=== PATIENT | female | born 1965 | race Two or more races ===

== ENCOUNTER 2017-01-21 10:32 | Emergency (ER) | payer MEDICAID, OTHER ==
[~2017-01-21] VITALS: Ht 167.6 cm; Wt 64.0 kg
[2017-01-21] MEDS ORDERED: IBUP-1509 PO (10:44)
[2017-01-21] MEDS ORDERED: LIDOCAINE HCL 1% 20ML VIAL (Pyxis) INJ MC ONE (11:15)
[2017-01-21] MEDS ORDERED: BACITRACIN ZINC OINT UDPKT TOP ONE (11:15)
[2017-01-21 11:44] VITALS: BP 109/57
== END 2017-01-21 13:04 | disposition home or self-care (01) ==
LOC: ER 11:05
DX: S91.311A Laceration without foreign body, right foot, initial encounter (principal); S91.111A Laceration without foreign body of right great toe without damage to nail, initial encounter; W22.09XA Striking against other stationary object, initial encounter; Y93.89 Activity, other specified; Y92.89 Other specified places as the place of occurrence of the external cause; I10 Essential (primary) hypertension; Z86.59 Personal history of other mental and behavioral disorders
CPT/HCPCS: 12002; 99284; J3490; X7700; Z7610

== ENCOUNTER 2017-01-28 22:39 | Inpatient (IN) | payer OTHER ==
[~2017-01-28] VITALS: Ht 167.6 cm; Wt 52.2 kg
[~2017-01-28 22:39] MED LIST: IBUP-2028 PO
[2017-01-29] VITALS (9 sets, daily range): BP systolic 86–99; BP diastolic 45–61
[2017-01-29 05:44] LABS: BASOPHILS % 2.6 % (0.0-2.0); EOSINOPHILS % 4.2 % (0.0-5.0); HEMATOCRIT. 21.8 % (36.0-48.0); HEMOGLOBIN. 7.2 g/dL (12.0-16.0); LYMPHOCYTES % 24.8 % (20.0-50.0); MEAN CORPUSCULAR HEMOGLOBIN 32.8 pg (28.0-32.0); MEAN CORPUSCULAR VOLUME 99.3 fL (81.0-99.0); MEAN PLATELET VOLUME 7.6 fl (7.4-10.4); MONOCYTES % 11.9 % (2.0-8.0); NEUTROPHILS % 56.5 % (40.0-76.0); PLATELET 159 x1000/uL (130-400); RED CELL DISTRIBUTION WIDTH 19.8 % (11.6-14.6)
[2017-01-29 05:53] LABS: INR 1.9; PROTHROMBIN TIME 19.4 sec (9.4-11.6)
[2017-01-29 06:01] LABS: CARBON DIOXIDE 28 mEq/L (21-32); CHLORIDE 105 mEq/L (98-107)
[2017-01-29] MEDS ORDERED: FAMOTIDINE 20MG TABLET PO ONE (06:45)
[2017-01-29] MEDS ORDERED: TRAMADOL 50MG TABLET PO ONE (06:45)
[2017-01-29] MEDS ORDERED: MORPHINE SULFATE 2 MG/ML CPJ (NOT FOR IM USE) IV ONE (07:15)
[2017-01-29] MEDS ORDERED: FAMOTIDINE 20MG/2ML VIAL IV ONE (07:15)
[2017-01-29] MEDS ORDERED: KETOROLAC 30MG/ML VIAL IV ONE (07:30)
[2017-01-29 07:38] LABS: CLARITY URINE CLOUDY (CLEAR); COLOR URINE DARK YELLOW (YELLOW); GLUCOSE URINE NEGATIVE (NEGATIVE); KETONES URINE NEGATIVE (NEGATIVE); LEUKOCYTE ESTERASE URINE 1+ (NEGATIVE); NITRITE URINE NEGATIVE (NEGATIVE); OCCULT BLOOD URINE NEGATIVE (NEGATIVE); PROTEIN URINE NEGATIVE (NEGATIVE); SPECIFIC GRAVITY URINE 1.021 (1.005-1.030)
[2017-01-29] MEDS ORDERED: FERR-63 PO (11:48)
[2017-01-29] MEDS ORDERED: SERT25TA74 PO (11:48)
[2017-01-29] MEDS ORDERED: PANTOPRAZOLE SODIUM 40 MG/VIAL IV SCH (12:15)
[2017-01-29] MEDS ORDERED: ONDANSETRON HCL 4MG/2ML VIAL IV PRN (14:15)
[2017-01-29] MEDS ORDERED: IPRATROPIUM/ALBUTEROL 0.5-3(2.5)MG/3ML NEB INH PRN (14:15)
[2017-01-29] MEDS ORDERED: FENTANYL CITRATE/PF 50MCG/ML 2ML VIAL ONE (16:06)
[2017-01-29] MEDS ORDERED: MIDAZOLAM HCL 5 MG/5 ML VIAL ONE (16:07)
[2017-01-29] MEDS ORDERED: OMEPRAZOLE 20MG CAPSULE EXTENDED RELEASE PO NR (17:30)
[2017-01-29 20:24] LABS: HEMOGLOBIN 6.4 g/dL (12.0-16.0)
[2017-01-29 20:25] LABS: HEMATOCRIT 19.2 % (36.0-48.0)
[2017-01-29 22:26] LABS: *AMPHETAMINES SCREEN URINE NEGATIVE (NEGATIVE); *BARBITURATES SCREEN URINE NEGATIVE (NEGATIVE); *COCAINE SCREEN URINE NEGATIVE (NEGATIVE); CANNABINOID URINE SCREEN NEGATIVE (NEGATIVE); METHADONE URINE SCREEN NEGATIVE (NEGATIVE); OPIATES URINE SCREEN NEGATIVE (NEGATIVE); PHENCYCLIDINE URINE SCREEN NEGATIVE (NEGATIVE)
[2017-01-29 22:40] LABS: *BENZODIAZEPINES SCREEN URINE PRESUMTIVE POSITIVE (NEGATIVE)
[2017-01-29 23:57] LABS: CREATINE KINASE 64 IU/L (26-192); CREATINE KINASE MB FRACTION 0.7 ng/mL (0.5-3.6); TROPONIN I < 0.02 ng/mL (0.00-0.04)
[2017-01-30] VITALS (13 sets, daily range): BP systolic 92–117; BP diastolic 51–67
[2017-01-30] MEDS: OMEPRAZOLE 20MG CAPSULE EXTENDED RELEASE PO SCH (05:45)
[2017-01-30 06:58] LABS: AMMONIA 105 uMol/L (<32)
[2017-01-30 07:04] LABS: FERRITIN 88 ng/mL (10-291)
[2017-01-30 07:09] LABS: HEPATITIS B SURFACE ANTIGEN NEGATIVE
[2017-01-30 07:26] LABS: HEMATOCRIT 26.4 % (36.0-48.0); HEMOGLOBIN 8.9 g/dL (12.0-16.0)
[2017-01-30 07:37] LABS: HEPATITIS B CORE AB IGM NEGATIVE
[2017-01-30 07:39] LABS: HEPATITIS A AB IGM NEGATIVE (NEGATIVE)
[2017-01-30 09:51] LABS: AMYLASE 38 IU/L (25-115); CREATINE KINASE 68 IU/L (26-192); CREATINE KINASE MB FRACTION 0.7 ng/mL (0.5-3.6); PHOSPHORUS 4.3 mg/dL (2.5-4.9); TOTAL IRON BINDING CAPACITY 163 ug/dL (250-450); TROPONIN I < 0.02 ng/mL (0.00-0.04)
[2017-01-30] MEDS ORDERED: MORPHINE SULFATE 2 MG/ML CPJ (NOT FOR IM USE) IV PRN (17:15)
[2017-01-30] MEDS ORDERED: IBUPROFEN 800MG TABLET PO PRN (18:00)
[2017-01-30] MEDS ORDERED: LACTULOSE 20G/30ML UDC PO SCH ×2 (19:00→19:15)
[2017-01-31] VITALS (7 sets, daily range): BP systolic 104–118; BP diastolic 60–68
[2017-01-31] MEDS: OMEPRAZOLE 20MG CAPSULE EXTENDED RELEASE PO SCH (06:13)
[2017-01-31] MEDS ORDERED: SIMETHICONE 40 MG/0.6 ML 30ML ONE (09:51)
[2017-01-31] MEDS ORDERED: SODIUM CHLORIDE 0.9% 10ML VIAL ONE (09:51)
== END 2017-01-31 21:20 | disposition short-term general hospital (02) | DRG 241 ==
LOC: ER 23:52 → 8WST 01-29 10:03 → EDBEDREQ 01-29 10:06 → ENRESERV 01-29 10:35
PROVIDERS: ADMIT Internal Medicine; ATTEND Internal Medicine
PROC: 30233N1 Transfusion of Nonautologous Red Blood Cells into Peripheral Vein, Percutaneous Approach (ICD-10-PCS; 2017-01-29)
PROC: 0DB68ZX Excision of Stomach, Via Natural or Artificial Opening Endoscopic, Diagnostic (ICD-10-PCS; principal; 2017-01-29 16:00)
DX: K25.4 Chronic or unspecified gastric ulcer with hemorrhage (principal); E43 Unspecified severe protein-calorie malnutrition; J90 Pleural effusion, not elsewhere classified; R18.8 Other ascites; K76.6 Portal hypertension; K29.60 Other gastritis without bleeding; R16.1 Splenomegaly, not elsewhere classified; K74.60 Unspecified cirrhosis of liver; I86.4 Gastric varices; K57.90 Diverticulosis of intestine, part unspecified, without perforation or abscess without bleeding; K80.20 Calculus of gallbladder without cholecystitis without obstruction; N39.0 Urinary tract infection, site not specified; D50.9 Iron deficiency anemia, unspecified; K31.89 Other diseases of stomach and duodenum
CPT/HCPCS: 36415; 74176; 76705; 78227; 80053; 80076; 80305; 81001; 81025; 82140; 82150; 82270; 82550; 82553; 82728; 83540; 83550; 83690; 83735; 84100; 84443; 84484; 85014; 85018; 85025; 85610; 86677; 86705; 86709; 86803; 86850; 86900; 86920; 87086; 87340; 88305; 88312; 88313; 96374; 96375; 99285; A4216; A9537; C1893; C9113; J1885; J2250; J2270; J3010; J3490; J7050; P9016

== ENCOUNTER 2017-03-12 09:00 | Emergency (ER) | payer OTHER ==
[~2017-03-12] VITALS: Ht 165.1 cm; Wt 60.0 kg
[~2017-03-12 09:00] MED LIST changes: +FERR-63 PO; +SERT25TA74 PO
[2017-03-12] MEDS ORDERED: ACETAMINOPHEN 325MG TABLET PO ONE (11:45)
[2017-03-12 12:56] VITALS: BP 131/70
== END 2017-03-12 13:10 | disposition home or self-care (01) ==
LOC: ER 09:51
DX: S90.822A Blister (nonthermal), left foot, initial encounter (principal); M19.90 Unspecified osteoarthritis, unspecified site; F41.9 Anxiety disorder, unspecified; X58.XXXA Exposure to other specified factors, initial encounter; Y93.89 Activity, other specified; Y92.89 Other specified places as the place of occurrence of the external cause
CPT/HCPCS: 99284; Z7610

== ENCOUNTER 2018-05-16 12:45 | Inpatient (IN) | payer MEDICAID, OTHER ==
[~2018-05-16] VITALS: Ht 167.6 cm; Wt 53.1 kg
[2018-05-16] MEDS ORDERED: PHEN-910 PO (13:14)
[2018-05-16] MEDS ORDERED: POTA10CA42 PO (13:15)
[2018-05-16] MEDS ORDERED: SODIUM CHLORIDE 0.9% 1,000 ML IV ONE (13:30)
[2018-05-16 15:26] LABS: BASOPHILS % 1.2 % (0.0-2.0); EOSINOPHILS % 4.5 % (0.0-5.0); HEMATOCRIT. 31.8 % (36.0-48.0); HEMOGLOBIN. 10.7 g/dL (12.0-16.0); LYMPHOCYTES % 20.6 % (20.0-50.0); MEAN CORPUSCULAR HEMOGLOBIN 33.5 pg (28.0-32.0); MEAN CORPUSCULAR VOLUME 99.6 fL (81.0-99.0); MEAN PLATELET VOLUME 9.4 fl (7.4-10.4); MONOCYTES % 11.5 % (2.0-8.0); NEUTROPHILS % 62.2 % (40.0-76.0); PLATELET 56 x1000/uL (130-400); RED CELL DISTRIBUTION WIDTH 16.4 % (11.6-14.6)
[2018-05-16 15:31] LABS: CHLORIDE 104 mEq/L (98-107)
[2018-05-16 15:32] LABS: INR 2.2; PROTHROMBIN TIME 21.8 sec (9.1-11.1)
[2018-05-16 15:35] LABS: ETHANOL BLOOD < 10 mg/dL
[2018-05-16] MEDS ORDERED: LACTULOSE 20G/30ML UDC PO NR (16:00)
[2018-05-16] MEDS ORDERED: ACETAMINOPHEN 325MG TABLET PO PRN (16:15)
[2018-05-16] MEDS ORDERED: ONDANSETRON HCL 4MG/2ML INJ IV PRN (16:15)
[2018-05-16] MEDS ORDERED: IPRATROPIUM/ALBUTEROL 0.5-3(2.5)MG/3ML NEB INH PRN (16:15)
[2018-05-16] MEDS ORDERED: LORAZEPAM 2MG/ML CPJ IV PRN (16:15)
[2018-05-16] MEDS ORDERED: CLONIDINE 0.1MG TABLET PO PRN (16:15)
[2018-05-16] MEDS ORDERED: MAGNESIUM/ALUMINUM HYDROXIDE/SIMETHICONE 30ML UDC PO PRN (16:15)
[2018-05-16 17:11] LABS: CLARITY URINE CLEAR (CLEAR); COLOR URINE DARK YELLOW (YELLOW); KETONES URINE TRACE (NEGATIVE); LEUKOCYTE ESTERASE URINE 1+ (NEGATIVE); NITRITE URINE NEGATIVE (NEGATIVE); OCCULT BLOOD URINE NEGATIVE (NEGATIVE); PH URINE 6.5 (4.5-8.0); PROTEIN URINE NEGATIVE (NEGATIVE); SPECIFIC GRAVITY URINE 1.017 (1.005-1.030)
[2018-05-16 17:25] LABS: *AMPHETAMINES SCREEN URINE NEGATIVE (NEGATIVE); *BARBITURATES SCREEN URINE NEGATIVE (NEGATIVE); *BENZODIAZEPINES SCREEN URINE NEGATIVE (NEGATIVE)
[2018-05-16 17:26] LABS: *COCAINE SCREEN URINE NEGATIVE (NEGATIVE); CANNABINOID URINE SCREEN NEGATIVE (NEGATIVE); METHADONE URINE SCREEN NEGATIVE (NEGATIVE); OPIATES URINE SCREEN NEGATIVE (NEGATIVE); PHENCYCLIDINE URINE SCREEN NEGATIVE (NEGATIVE)
[2018-05-16] MEDS: LACTULOSE 20G/30ML UDC PO SCH (21:29)
[2018-05-16 22:04] VITALS: BP 110/59
[2018-05-16] MEDS: RIFAXIMIN 550 MG TABLET PO SCH (23:02)
[2018-05-16 23:59] LABS: CREATINE KINASE 69 IU/L (26-192)
[2018-05-17] VITALS: BP 115/62
[2018-05-17] MEDS ORDERED: PHEN-910 MT (02:04)
[2018-05-17] MEDS ORDERED: CEPH500C2 PO (02:04)
[2018-05-17] MEDS ORDERED: IBUP-2029 PO (02:04)
[2018-05-17] MEDS ORDERED: PANT40TA4 PO (02:04)
[2018-05-17 04:00] VITALS: BP 110/59
[2018-05-17] MEDS: LACTULOSE 20G/30ML UDC PO SCH ×3 (05:52→20:37)
[2018-05-17 07:28] LABS: BASOPHILS % 0.8 % (0.0-2.0); EOSINOPHILS % 8.4 % (0.0-5.0); HEMATOCRIT. 32.4 % (36.0-48.0); HEMOGLOBIN. 10.9 g/dL (12.0-16.0); LYMPHOCYTES % 23.2 % (20.0-50.0); MEAN CORPUSCULAR HEMOGLOBIN 33.2 pg (28.0-32.0); MEAN CORPUSCULAR VOLUME 98.6 fL (81.0-99.0); MONOCYTES % 11.8 % (2.0-8.0); NEUTROPHILS % 55.8 % (40.0-76.0); RED BLOOD CELL COUNT 3.29 mill/uL (4.2-5.4); RED CELL DISTRIBUTION WIDTH 16.2 % (11.6-14.6)
[2018-05-17 07:49] LABS: CHLORIDE 106 mEq/L (98-107)
[2018-05-17 07:58] LABS: HDL CHOLESTEROL 61 mg/dL (40-59); LDL CHOLESTEROL 39 mg/dL (5-100)
[2018-05-17 07:59] LABS: CREATINE KINASE 64 IU/L (26-192)
[2018-05-17 08:00] VITALS: BP 103/55
[2018-05-17 08:02] LABS: CREATINE KINASE MB FRACTION < 1.0 ng/mL (0.5-3.6)
[2018-05-17 08:15] LABS: PLATELET 51 x1000/uL (130-400)
[2018-05-17] MEDS: FOLIC ACID 1MG TABLET PO SCH (08:44)
[2018-05-17] MEDS: THIAMINE HCL 100MG TABLET PO SCH (08:44)
[2018-05-17] MEDS: MULTIVITAMINS,THER W-MINERALS TABLET PO SCH (08:45)
[2018-05-17] MEDS: RIFAXIMIN 550 MG TABLET PO SCH ×2 (08:45→20:38)
[2018-05-17] MEDS: PANTOPRAZOLE 40MG DR TABLET PO SCH (08:45)
[2018-05-17 12:00] VITALS: BP 150/54
[2018-05-17] MEDS ORDERED: POTASSIUM CHLORIDE 20MEQ TABLET SR PO NR (12:42)
[2018-05-17 16:08] VITALS: BP 104/54
[2018-05-17 17:33] LABS: TOTAL IRON BINDING CAPACITY 152 ug/dL (250-450)
[2018-05-17 20:00] VITALS: BP 97/56
[2018-05-18] VITALS: BP 106/57
[2018-05-18 04:00] VITALS: BP 110/59
[2018-05-18 06:55] LABS: BASOPHILS % 1.3 % (0.0-2.0); EOSINOPHILS % 12.1 % (0.0-5.0); HEMATOCRIT. 30.8 % (36.0-48.0); HEMOGLOBIN. 10.5 g/dL (12.0-16.0); LYMPHOCYTES % 23.2 % (20.0-50.0); MEAN CORPUSCULAR HEMOGLOBIN 33.6 pg (28.0-32.0); MEAN CORPUSCULAR VOLUME 98.8 fL (81.0-99.0); MEAN PLATELET VOLUME 9.4 fl (7.4-10.4); NEUTROPHILS % 50.4 % (40.0-76.0); PLATELET 51 x1000/uL (130-400); RED BLOOD CELL COUNT 3.11 mill/uL (4.2-5.4); RED CELL DISTRIBUTION WIDTH 16.2 % (11.6-14.6)
[2018-05-18 07:46] LABS: CHLORIDE 105 mEq/L (98-107)
[2018-05-18 08:00] VITALS: BP 101/58
[2018-05-18] MEDS: RIFAXIMIN 550 MG TABLET PO SCH (08:31)
[2018-05-18] MEDS: PANTOPRAZOLE 40MG DR TABLET PO SCH (08:31)
[2018-05-18] MEDS: LACTULOSE 20G/30ML UDC PO SCH ×2 (08:31→17:00)
[2018-05-18] MEDS: THIAMINE HCL 100MG TABLET PO SCH (08:31)
[2018-05-18] MEDS: MULTIVITAMINS,THER W-MINERALS TABLET PO SCH (08:31)
[2018-05-18] MEDS: FOLIC ACID 1MG TABLET PO SCH (08:36)
[2018-05-18 12:00] VITALS: BP 105/60
[2018-05-18 18:24] VITALS: BP 102/60
== END 2018-05-18 18:53 | disposition home or self-care (01) | DRG 279 ==
LOC: ER 12:45 → 7WST 15:56 → EDBEDREQ 15:58 → ENRESERV 19:40
PROVIDERS: ADMIT Internal Medicine; ATTEND Internal Medicine
DX: K72.90 Hepatic failure, unspecified without coma (principal); E43 Unspecified severe protein-calorie malnutrition; D68.9 Coagulation defect, unspecified; D69.6 Thrombocytopenia, unspecified; K76.6 Portal hypertension; K70.31 Alcoholic cirrhosis of liver with ascites; D64.9 Anemia, unspecified; I86.4 Gastric varices; K21.9 Gastro-esophageal reflux disease without esophagitis; K57.90 Diverticulosis of intestine, part unspecified, without perforation or abscess without bleeding; N39.0 Urinary tract infection, site not specified; F41.9 Anxiety disorder, unspecified; M19.90 Unspecified osteoarthritis, unspecified site; Z79.899 Other long term (current) drug therapy; Z87.11 Personal history of peptic ulcer disease
CPT/HCPCS: 36415; 71045; 80048; 80061; 80305; 82140; 82550; 82553; 82962; 83540; 83550; 83605; 84443; 84484; 92610; 93005; 93970; 96360; 97162; 99285; G0482; J7030